=== PATIENT | female | born 1995 | race Caucasian/White ===

== ENCOUNTER 2016-11-30 18:44 | Emergency (ER) | payer OTHER ==
--- NOTE | 2016-11-30 18:58 | UC ---
Hand/Wrist HPI - HPI Summary HPI Summary: 21 female presents with complaints of right hand pain after an injury she sustained yesterday 11/29/16 while playing softball. States the pain began after catching a ball with her bare hand and then have it hit her in the hand when she was trying to bunt the ball. Admits to bruising, minimal swelling and tenderness on palpation. Also sore to move wrist and thumb. Points to worst pain being on palmar side of thumb and thenar eminence with radiation to the right radial wrist. Denies any medication for pain. Has been icing. Tried to play softball again today but was unable due to the pain. Was advised to come here for x-rays. Describes pain as achey and sharp at times. Denies PMHx. [place] numbness/tingling when injury first occurred that lasted a few seconds however, no longer is experiencing it. No other injuries. - History Of Current Complaint Stated Complaint: HAND INJURY Time Seen by Provider: 11/30/16 18:56 Hx Obtained From: Patient Hx Last Menstrual Period: 05/17/15, abstinence ?: No Onset/Duration: Sudden Onset Severity Initially: Mild Severity Currently: Moderate Pain Intensity: 8 Pain Scale Used: 0-10 Numeric Character Of Pain: Sharp, Aching, Throbbing, Stiffness Aggravating Factor(s): Movement Alleviating: Rest, Ice Associated Signs And Symptoms: Positive: Swelling, Bruising, Numbness/Tingling - only when it first happened, no longer feels parasthesia Related History: Dominant Hand Right - Allergies/Home Medications Allergies/Adverse Reactions: Allergies Allergy/AdvReac Type Severity Reaction Status Date / Time No Known Allergies Allergy Verified 11/30/16 18:58 Home Medications: Home Medications NK [No Home Medications Reported] 11/30/16 [History Confirmed 11/30/16] PMH/Surg Hx/FS Hx/Imm Hx Endocrine History Of: Denies: Diabetes Cardiovascular History Of: Denies: Hypertension Respiratory History Of: Denies: Asthma GI/ History Of: Denies: Gastroesophageal Reflux - Surgical History Surgical History: Yes Surgery Procedure, Year, and Place: KNEE SURGERY Left - Family History Known Family History: Negative: Hypertension, Diabetes - Social History Alcohol Use: None Substance Use Type: None Smoking Status (MU): Never Smoked Tobacco - Immunization History Most Recent Tetanus Shot: up to date Review of Systems Constitutional: Negative Skin: Bruising, Other - swelling hand R Respiratory: Negative Cardiovascular: Negative Motor: Decreased ROM Neurovascular: Negative Musculoskeletal: Arthralgia, Decreased ROM - right thumb and wrist, Edema, Myalgia Neurological: Negative All Other Systems Reviewed And Are Negative: Yes Physical Exam Triage Information Reviewed: Yes Appearance: Well-Appearing, No Pain Distress, Well-Nourished Vital Signs: HR: 103 BP: 107/64 Resp: 18 Temp: 98.1 O2: 98 tachycardia noted. Vital Signs Reviewed: Yes Eyes: Positive: Conjunctiva Clear ENT: Positive: Normal ENT inspection, Hearing grossly normal Neck: Positive: Supple, Nontender, No Lymphadenopathy Respiratory: Positive: Chest non-tender, Lungs clear, Normal breath sounds, No respiratory distress Cardiovascular: Positive: RRR, No Murmur, Pulses Normal - 2+ radial bilateral, Brisk Capillary Refill - <2 seconds Musculoskeletal: Positive: Strength Limited @ - right thumb and right wrist 3/5 when compared to left. able to move digits 1-4 full ROM. sensation and skin intact. circulation intact, ROM Limited @ - right thumb and right wrist, able but causes pain and limited with flexion/extension and inversion/eversion, Edema @ - minimal at right hand when compared to left at thenar eminance and base of palmar hand. no edema in wrist noted when compared to left., Other: - very tender to touch thumb and wrist/snuff box on palpation Neurological Exam: Normal Neurological: Positive: Alert Psychological Exam: Normal Skin: Positive: Other - ecchymosis of right thenar eminance, base of thumb and hand on palmar side. no obvious deformity noted, no crepitius or step off. skin intact. no hematoma or erythema noted. Diagnostics - Radiology right hand Xray Interpretation: No Acute Changes - NO FRACTURE OF THE HAND IS NOTED Radiology Interpretation Completed By: Radiologist right wrist Xray Interpretation: No Acute Changes - NO FRACTURE OF THE WRIST IS NOTED Radiology Interpretation Completed By: Radiologist Hand/Wrist Course/Dx - Course Course Of Treatment: x-ray of right hand and wrist obtained and negative. ibuprofen given in office for pain and inflammation. thumb spica splint and ibuprofen and ice at home. rest and follow up. aware of worsening signs and symptoms, such as pallor, pulselessness and parasthesias. - Differential Dx/Diagnosis Differential Diagnosis/HQI/PQRI: Contusion, Dislocation, Fracture, Sprain, Strain, Tendonitis, Other Provider Diagnoses: Thumb sprain- right Discharge - Discharge Plan Condition: Stable Disposition: HOME Patient Education Materials: Finger Sprain (ED) Forms: *Gen. Provider Communication, *Physical Education Release Referrals: Madison HENNING,Leonid Figueroa [Primary Care Provider] - Additional Instructions: Take ibuprofen or aleve daily for the next couple of days for pain and inflammation. Wear splint to allow enough time for thumb/hand to heal. Rest and refrain from physical activity/softball until released by primary care. Ice the area 20 minutes on and 20 minutes off daily. After symptoms subside and in a few days try heat to loosen muscles. If symptoms persist or worsen please seek medical attention. Follow up with primary care provider.
[2016-11-30 19:09] VITALS: BP 107/64
[2016-11-30] MEDS ORDERED: Ibuprofen TAB* 600 MG PO ONE (19:20)
--- NOTE | 2016-11-30 19:47 | RAD ---
Indication: Right hand injury. 4 views of the right hand demonstrates no fracture. No other bone or joint abnormality is noted. IMPRESSION: No fracture of the right hand is noted.
--- NOTE | 2016-11-30 19:49 | RAD ---
Indication: Right wrist injury and pain 3 views of the wrist demonstrates no fracture. No other bone or joint abnormality is identified. IMPRESSION: NO FRACTURE OF THE WRIST IS NOTED.
== END 2016-11-30 20:50 | disposition home or self-care (01) ==
LOC: UCEAST 18:44
DX: S63.601A Unspecified sprain of right thumb, initial encounter (principal); X58.XXXA Exposure to other specified factors, initial encounter; Y93.64 Activity, baseball
CPT/HCPCS: 99211; A9270-GY; G0463

== ENCOUNTER 2017-09-19 12:34 | Emergency (ER) | payer BC, OTHER ==
[2017-09-19 12:49] VITALS: BP 117/71
[2017-09-19] MEDS ORDERED: Aspirin Low Dose CHEW TAB* 81 MG PO ONE (12:50)
--- NOTE | 2017-09-19 13:22 | UC ---
Cardiac HPI - HPI Summary HPI Summary: left side and substernal chest pain radiates in to left arm with left arm numbness, feels SOB and like she needs to take deep breath in order to get enough air-- - History of Current Complaint Chief Complaint: UCChestPain Stated Complaint: CHEST PAIN, ARM NUMBNESS Time Seen by Provider: 09/19/17 12:41 Hx Obtained From: Patient Hx Last Menstrual Period: 08/21/17 Onset/Duration: Sudden Onset, Lasting Hours - 18, Still Present Timing: Constant Initial Severity: Moderate Current Severity: Moderate Pain Intensity: 7 Chest Pain Location: Mid Sternal, Left Anterior Character: Tightness, Heaviness Aggravating Factor(s): Nothing Alleviating Factor(s): Upright Associated Signs & Symptoms: Positive: Chest Pain, Tingling - left arm, SOB, Back Pain - between shoulder blades - Allergy/Home Medications Allergies/Adverse Reactions: Allergies Allergy/AdvReac Type Severity Reaction Status Date / Time No Known Allergies Allergy Verified 09/19/17 12:44 Home Medications: Home Medications Amphetamine-Dextroamphetamine [Adderall 15 mg] 15 mg PO DAILY 09/19/17 [History Confirmed 09/19/17] PMH/Surg Hx/FS Hx/Imm Hx Previously Healthy: No - ADHD, Hospitalized with chest pain 1 year ago - Surgical History Surgical History: Yes Surgery Procedure, Year, and Place: KNEE SURGERY Left , Breast reduction surgery March 2017 - Family History Known Family History: Positive: Other - mother with cervical cancer grandfather age 59 from [place] Negative: Hypertension, Diabetes - Social History Occupation: Student Lives: Dormitory/Roommates Alcohol Use: Occasionally Substance Use Type: None Smoking Status (MU): Never Smoked Tobacco - Immunization History Most Recent Influenza Vaccination: unsure Most Recent Tetanus Shot: up to date Review of Systems Constitutional: Negative Skin: Negative Eyes: Negative ENT: Negative Respiratory: Shortness Of Breath Cardiovascular: Chest Pain Gastrointestinal: Negative Genitourinary: Negative Motor: Negative Neurovascular: Negative Musculoskeletal: Negative Neurological: Negative Psychological: Negative Is Patient Immunocompromised?: No All Other Systems Reviewed And Are Negative: Yes Physical Exam Triage Information Reviewed: Yes Appearance: Well-Appearing, Well-Nourished, Pain Distress - mild Vital Signs: Initial Vital Signs Temp 99.5 F 09/19/17 12:46 Pulse 88 09/19/17 12:46 Resp 18 09/19/17 12:46 BP 117/71 09/19/17 12:46 Pulse Ox 100 09/19/17 12:46 Vital Signs Reviewed: Yes Eye Exam: Normal Eyes: Positive: Conjunctiva Clear ENT Exam: Normal ENT: Positive: Normal ENT inspection, Hearing grossly normal, TMs normal. Negative: Nasal congestion, Nasal drainage, Tonsillar swelling, Tonsillar exudate, Trismus, Muffled voice, Hoarse voice Dental Exam: Normal Neck exam: Normal Neck: Positive: Supple, Nontender, No Lymphadenopathy Respiratory Exam: Normal Respiratory: Positive: Chest non-tender, Lungs clear, Normal breath sounds, No respiratory distress, No accessory muscle use Cardiovascular Exam: Normal Cardiovascular: Positive: RRR, No Murmur, Pulses Normal, Brisk Capillary Refill Abdominal Exam: Normal Abdomen Description: Positive: Nontender, No Organomegaly, Soft. Negative: Hepatomegaly Bowel Sounds: Positive: Present Musculoskeletal Exam: Normal Musculoskeletal: Positive: Strength Intact, ROM Intact Neurological Exam: Normal Neurological: Positive: Alert, Muscle Tone Normal Psychological Exam: Normal Skin Exam: Normal Diagnostics - EKG Cardiac Rate: NL Cardiac Rhythm: Sinus: Normal Ectopy: None - inverted in V3, flat V4 ST Segment: Non-Specific - Assessment/Plan Course Of Treatment: Saline lock, 324 mg Aspirin, transfer to [facility] by EMS - Clinical Impression Provider Diagnoses: Chest pain, EKG changes - Physician Notifications Time Discussed With Above Provider: 12:55 - No providers available report to Jenni LYNCH Instructed by Provider To: Transfer Discharge - Discharge Plan Condition: Guarded Disposition: TRANS HIGHER LVL OF CARE FAC Referrals: Madison HENNING,Leonid Figueroa [Primary Care Provider] -
== END 2017-09-19 13:10 | disposition short-term general hospital (02) ==
LOC: UCEAST 12:34
DX: R07.89 Other chest pain (principal); R94.31 Abnormal electrocardiogram [ECG] [EKG]; R20.2 Paresthesia of skin; R06.02 Shortness of breath; M54.6 Pain in thoracic spine; F90.9 Attention-deficit hyperactivity disorder, unspecified type
CPT/HCPCS: 99213; A9270-GY; G0463

== ENCOUNTER 2017-09-19 13:34 | Emergency (ER) | payer BC, OTHER ==
[2017-09-19] MEDS ORDERED: Lidocaine 2% VISCOUS* 15 ML UDC PO ONE (14:47)
[2017-09-19] MEDS ORDERED: Al Hydrox/Mg Hydrox/Simet LIQ* 30 ML UDC PO ONE (14:47)
[2017-09-19 15:24] LABS: ABS Basophils 0 10^3/ul (0-0.2); ABS Eosinophils 0.1 10^3/ul (0-0.6); ABS Lymphocytes 2.1 10^3/ul (1.0-4.8); ABS Monocytes 0.5 10^3/ul (0-0.8); ABS Neutrophils 4.6 10^3/ul (1.5-7.7); ABS Nucleated RBC 0 10^3/ul; Eosinophil % 0.9 % (0-6); Hematocrit 40 % (35-47); Hemoglobin 13.7 g/dl (12.0-16.0); Lymphocyte % 29.1 % (25-47); Mean Corpuscular HGB Conc 35 g/dl (31-36); Mean Corpuscular Hemoglobin 31 pg (27-31); Mean Corpuscular Volume 90 fL (80-97); Mean Platelet Volume 9 um3 (7.4-10.4); Nucleated Red Blood Cells % 0.1; Platelet Count 220 10^3/ul (150-450); Red Blood Count 4.43 10^6/ul (4.0-5.4); Red Cell Distribution Width 13 % (10.5-15); White Blood Count 7.4 10^3/ul (3.5-10.8)
--- NOTE | 2017-09-19 15:27 | RAD ---
HISTORY: Chest pain COMPARISONS: June 03, 2016 VIEWS: 4: Frontal dual-energy and lateral views of the chest. FINDINGS: CARDIOMEDIASTINAL SILHOUETTE: The cardiomediastinal silhouette is normal. MARCO: The marco are normal. PLEURA: The costophrenic angles are sharp. No pleural abnormalities are noted. LUNG PARENCHYMA: The lungs are clear. ABDOMEN: The upper abdomen is clear. There is no subphrenic gas. BONES AND SOFT TISSUES: No bone or soft tissue abnormalities are noted. OTHER: None. IMPRESSION: NO ACTIVE CARDIOPULMONARY DISEASE.
[2017-09-19 15:41] LABS: EGFR Non-African American 103.3 (>60)
[2017-09-19] MEDS ORDERED: ALPRAZolam TAB* 0.25 MG PO ONE (16:02)
[2017-09-19] MEDS ORDERED: Acetaminophen TAB* 325 MG PO ONE (16:02)
[2017-09-19] MEDS ORDERED: Omeprazole CAP* 20 MG PO ONE (16:02)
[2017-09-19 18:23] VITALS: BP 106/62
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
== END 2017-09-19 18:22 | disposition home or self-care (01) ==
LOC: ED 13:34
DX: R07.9 Chest pain, unspecified (principal); R94.31 Abnormal electrocardiogram [ECG] [EKG]
CPT/HCPCS: 36415; 71046; 80053; 83605; 84484; 85025; 85379; 93005; 99283; A9270-GY